=== PATIENT | male | born 1985 | race American Indian/Alaskan Native ===

== ENCOUNTER 2017-08-15 01:53 | Emergency (ER) | payer MEDICAID ==
[2017-08-15 01:53] VITALS: BMI 38.2
[2017-08-15 01:58] VITALS: BP 121/72; PULSE 103; RESP 16; TEMP 97.8; O2SAT 100
--- NOTE | 2017-08-15 02:05 | ED PDOC ---
HPI: Psych/Substance Abuse Time Seen by Provider: 08/15/17 01:56 Chief Complaint (Nursing): Psychiatric Evaluation Chief Complaint (Provider): Hearing voices History Per: Patient History/Exam Limitations: no limitations Onset/Duration Of Symptoms: Days Additional Complaint(s): 31 yo male with history of schizophrenia states "I am hearing voices and want to be admitted to the psych unit". Pt states he was last admitted 5 [place] ago [place]. Pt states that he takes geodon and haldol but not everyday because it is not working any way. Pt reports smoking marijuna and drinking alcohol but states he has not done either in 24 hours. Past Medical History Reviewed: Historical Data, Nursing Documentation, Vital Signs Vital Signs: Last Vital Signs Temp 97.8 F 08/15/17 01:56 Pulse 103 H 08/15/17 01:56 Resp 16 08/15/17 01:56 BP 121/72 08/15/17 01:56 Pulse Ox 100 08/15/17 01:56 - Medical History PMH: Schizophrenia Denies: Diabetes, Hepatitis, HIV, HTN, Seizures, Sexually Transmitted Disease - Surgical History Surgical History: No Surg Hx - Family History Family History: States: Unknown Family Hx - Living Arrangements Living Arrangements: Other - Social History Current smoker - smoking cessation education provided: No Alcohol: Occasional Drugs: Cannabis - Home Medications Home Medications: Ambulatory Orders Medication Instructions Recorded Cogentin 1 tab PO DAILY 08/11/17 Haldol 1 tab PO DAILY 08/11/17 - Allergies Allergies/Adverse Reactions: Allergies Allergy/AdvReac Type Severity Reaction Status Date / Time No Known Allergies Allergy Verified 08/11/17 03:18 Review of Systems ROS Statement: Except As Marked, All Systems Reviewed And Found Negative Constitutional: Negative for: Fever, Chills Cardiovascular: Negative for: Chest Pain Psych: Positive for: Psychosis. Negative for: Suicidal ideation Physical Exam - Reviewed Nursing Documentation Reviewed: Yes Vital Signs Reviewed: Yes - Physical Exam Appears: Positive for: Well, Non-toxic, No Acute Distress Head Exam: Positive for: ATRAUMATIC, NORMAL INSPECTION, NORMOCEPHALIC Skin: Positive for: Normal Color, Warm, DRY Eye Exam: Positive for: Normal appearance ENT: Positive for: Normal ENT Inspection Neck: Positive for: Normal, Painless ROM Cardiovascular/Chest: Positive for: Regular Rate, Rhythm Respiratory: Positive for: CNT, Normal Breath Sounds Gastrointestinal/Abdominal: Positive for: Normal Exam, Bowel Sounds, Soft. Negative for: Tenderness Back: Positive for: Normal Inspection Extremity: Positive for: Normal ROM Neurologic/Psych: Positive for: Alert, Oriented - ECG O2 Sat by Pulse Oximetry: 100 Disposition - Clinical Impression Clinical Impression: Substance abuse - Patient ED Disposition Is Patient to be Admitted: No Counseled Patient/Family Regarding: Diagnosis, Need For Followup - Disposition Referrals: [facility] [Outside] Disposition: Routine/Home Disposition Time: 04:41 Condition: GOOD Instructions: Cannabis Abuse (ED) Forms: [employer] ([employer])
== END 2017-08-15 04:42 | disposition home or self-care (01) ==
LOC: H.ER 01:53
DX: F12.10 Cannabis abuse, uncomplicated (principal); F20.9 Schizophrenia, unspecified

== ENCOUNTER 2019-01-03 22:48 | Emergency (ER) | payer MEDICAID, OTHER ==
[2019-01-03 22:49] VITALS: BMI 37.3
--- NOTE | 2019-01-03 23:31 | ED PDOC ---
HPI: Psych/Substance Abuse Time Seen by Provider: 01/03/19 23:10 Chief Complaint (Nursing): Psychiatric Evaluation Chief Complaint (Provider): Psychiatric Evaluation History Per: Patient Current Symptoms Are (Timing): Still Present Additional Complaint(s): Pt. is a 33 y/o Male with h/o schizophrenia, depression, bipolar and substance abuse who present to ED reporting he's been hearing voices since yesterday. The voices are telling him to "kill himself". Pt. reports he drank 2 small bottles of vodka earlier today and smoked crack cocaine. He also reports some mild pain to the bottom of both of his feet. Pt. is homeless and is frequently on his feet. Past Medical History Vital Signs: Last Vital Signs Temp 99.0 F 01/03/19 22:50 Pulse 91 H 01/03/19 22:50 Resp 16 01/03/19 22:50 BP 119/74 01/03/19 22:50 Pulse Ox 98 01/03/19 22:50 - Medical History PMH: Anxiety, Bipolar Disorder, Depression, Schizophrenia Denies: Diabetes, Hepatitis, HIV, HTN, Chronic Kidney Disease, Seizures, Sexually Transmitted Disease - Family History Family History: States: Unknown Family Hx - Immunization History Hx Tetanus Toxoid Vaccination: No Hx Influenza Vaccination: No Hx Pneumococcal Vaccination: No - Home Medications Home Medications: Ambulatory Orders Medication Instructions Recorded No Known Home Med 12/20/18 - Allergies Allergies/Adverse Reactions: Allergies Allergy/AdvReac Type Severity Reaction Status Date / Time No Known Allergies Allergy Verified 01/03/19 22:50 Review of Systems Constitutional: Negative for: Fever, Chills Cardiovascular: Negative for: Chest Pain Respiratory: Negative for: Cough, Shortness of Breath Musculoskeletal: Positive for: Foot Pain Psych: Positive for: Depression, Suicidal ideation Physical Exam - Reviewed Nursing Documentation Reviewed: Yes Vital Signs Reviewed: Yes - Physical Exam Appears: Positive for: Non-toxic, No Acute Distress Head Exam: Positive for: ATRAUMATIC Skin: Positive for: Normal Color, Warm, Dry Eye Exam: Positive for: Normal appearance Cardiovascular/Chest: Positive for: Regular Rate, Rhythm Respiratory: Positive for: Normal Breath Sounds Gastrointestinal/Abdominal: Positive for: Normal Exam, Soft. Negative for: Tenderness Extremity: Positive for: Other (macerated skin to plantar aspect of both feet, with no signs of suppurative infection. (+) scabbed ulcerative lesion to medial aspect of right ankle with no surrounding erythema, no induration, fluctuance or tenderness. ) Neurological/Psych: Positive for: Awake, Alert - ECG O2 Sat by Pulse Oximetry: 98 Medical Decision Making Medical Decision Making: cbc cmp etoh drug screen ua cxr ekg Case d/w lay out worker, will evaluate. Case endorsed to JASON Nichole at 12am, pending labs, reassessment and crisis disposition. Disposition - Clinical Impression Clinical Impression: Alcohol intoxication, Major depression, Schizophrenia, Bipolar 1 disorder - Patient ED Disposition Is Patient to be Admitted: Transfer of Care (JASON Nichole) - Disposition Disposition: Transfer of Care (JASON Nichole) Disposition Time: 23:58 Condition: STABLE
--- NOTE | 2019-01-03 23:58 | ED PDOC ---
- Laboratory Results Result Diagrams: 01/03/19 23:48 01/03/19 23:48 - ECG O2 Sat by Pulse Oximetry: 98 - Progress ED Course And Treament: SEEN BY CRISIS D/W DR. JONES DIAGNOSIS SCHIZOAFFECTIVE DISORDER Disposition - Clinical Impression Clinical Impression: Alcohol intoxication, Schizophrenia, Depression, Major depression, Bipolar 1 disorder - POA Present On Arrival: None - Disposition Disposition: Routine/Home Disposition Time: 01:52 Condition: FAIR Instructions: Schizophrenia (DC)
[2019-01-04 00:03] LABS: BASO # 0.2 K/uL (0.0-0.2); BASO % 1.5 % (0.0-2.0); EOS # 0.1 K/uL (0.0-0.7); EOS % 0.6 % (0.0-4.0); HEMOGLOBIN 14.3 g/dL (12.0-18.0); LYMPH # 3.1 K/uL (1.0-4.3); LYMPH % 23.3 % (20.0-40.0); MEAN CELL VOLUME 89.9 fl (80.0-94.0); MEAN CORPUSCULAR HEMOGLOBIN 29.8 pg (27.0-31.0); MEAN CORPUSCULAR HGB CONC 33.2 g/dL (33.0-37.0); MEAN PLATELET VOLUME 8.9 fl (7.2-11.7); MONO # 1.1 K/uL (0.0-0.8); MONO % 8.6 % (0.0-10.0); NEUT # 8.6 K/uL (1.8-7.0); RBC 4.78 Mil/uL (4.40-5.90); RED CELL DISTRIBUTION WIDTH 14.5 % (11.5-14.5); WHITE BLOOD COUNT 13.1 K/uL (4.8-10.8)
[2019-01-04 00:05] LABS: URINE BACTERIA RARE (<OCC); URINE BILIRUBIN NEGATIVE (NEGATIVE); URINE BLOOD NEGATIVE (NEGATIVE); URINE CLARITY SLIGHTY-CLOUDY (Clear); URINE COLOR YELLOW (YELLOW); URINE GLUCOSE (UA) 150 mg/dL (NEGATIVE); URINE LEUKOCYTE ESTERASE NEG Leu/uL (Negative); URINE PROTEIN 30 mg/dL (NEGATIVE); URINE UROBILINOGEN 0.2-1.0 mg/dL (0.2-1.0)
[2019-01-04 00:12] LABS: ALB/GLOB RATIO 1.4 (1.0-2.1); ALBUMIN 4.1 g/dL (3.5-5.0); ALT/SGPT 33 U/L (21-72); AST/SGOT 30 U/L (17-59); BLOOD UREA NITROGEN 13 mg/dl (9-20); GFR NON-AFRICAN AMERICAN > 60
[2019-01-04 00:19] LABS: BARBITURATES, UR NEGATIVE (NEGATIVE)
[2019-01-04 00:32] LABS: BENZODIAZEPINES, UR POSITIVE (NEGATIVE); OPIATES, UR NEGATIVE (NEGATIVE); PHENCYCLIDINE, UR NEGATIVE (NEGATIVE)
[2019-01-04 01:28] VITALS: BP 122/75; PULSE 72; RESP 18; TEMP 98.8
[2019-01-04 01:53] VITALS: O2SAT 98
--- NOTE | 2019-01-04 09:35 | CARD ---
APPROVED REPORT Date of service: 01/04/2019 EKG Measurement Heart [id number] <Conclusion> Normal sinus rhythm Poor R wave progression in Precordial leads Abnormal ECG
--- NOTE | 2019-01-04 10:03 | RAD ---
Date of service: 01/04/2019 HISTORY: medical clearance COMPARISON: No prior. TECHNIQUE: Chest PA and lateral views. Two views. FINDINGS: LUNGS: No active pulmonary disease. PLEURA: No significant pleural effusion identified. No pneumothorax apparent. CARDIOVASCULAR: No aortic atherosclerotic calcification present. Normal cardiac size. No pulmonary vascular congestion. OSSEOUS STRUCTURES: No significant abnormalities. VISUALIZED UPPER ABDOMEN: Normal. OTHER FINDINGS: None. IMPRESSION: No active disease.
== END 2019-01-04 02:15 | disposition home or self-care (01) ==
LOC: H.ER 22:48
DX: F10.129 Alcohol abuse with intoxication, unspecified (principal); Z86.59 Personal history of other mental and behavioral disorders; Z59.0 Homelessness